=== PATIENT | female | born 1970 ===

== ENCOUNTER → 2017-11-18 | Outpatient (CLI) | payer OTHER | END | disposition home or self-care (01) | LOC: RAD 16:28 | DX: M25.571 Pain in right ankle and joints of right foot (principal) ==

== ENCOUNTER 2018-03-05 08:20 | Outpatient (CLI) | payer OTHER | END 2018-03-05 08:42 | disposition home or self-care (01) | LOC: RAD 08:20 → RX STUDY 11:15 | DX: K76.0 Fatty (change of) liver, not elsewhere classified (principal); E04.1 Nontoxic single thyroid nodule; K22.4 Dyskinesia of esophagus ==